=== PATIENT | female | born 2000 | race Two or more races ===

== ENCOUNTER 2023-06-26 21:10 | Emergency (ER) | payer OTHER ==
[~2023-06-26] VITALS: Ht 157.5 cm; Wt 72.6 kg
[2023-06-26] MEDS ORDERED: PROTONIX20 MG PO (21:17)
[2023-06-26] MEDS ORDERED: PEPCID AC10 MG (21:17)
[2023-06-26] MEDS ORDERED: SUCRALFATE 1 G TABLET PO ONE (22:00)
[2023-06-26] MEDS ORDERED: FAMOtidine 20 MG TABLET PO ONE (22:00)
[2023-06-26 22:16] LABS: HEMATOCRIT 36.3 % (36.0-45.00); HEMOGLOBIN 12.4 g/dL (12.0-15.00); MEAN CELL VOLUME 83.6 fL (80.00-100.00); MEAN CORPUSCULAR HEMOGLOBIN 28.5 pg (27.00-32.0); MEAN CORPUSCULAR HGB CONC 34.1 g/dl (32.0-36.0); PLATELET COUNT 233 K/uL (150-450); RED BLOOD COUNT 4.35 M/uL (4.00-6.00)
[2023-06-26 22:38] LABS: ALBUMIN 3.4 gm/dL (3.4-5.0); BILIRUBIN TOTAL 0.31 mg/dL (0.3-1.2); CALCIUM 9.3 mg/dL (8.5-10.1); CREATININE SERUM 0.87 mg/dL (0.55-1.02); GFR 81.42; POTASSIUM 3.24 mEq/L (3.5-5.1); TOTAL PROTEIN 6.4 gm/dL (6.4-8.2)
== END 2023-06-26 23:34 | disposition home or self-care (01) ==
LOC: ER 21:10
PROVIDERS: General Practice
DX: R10.13 Epigastric pain (principal)